=== PATIENT | male | born 2000 ===

== ENCOUNTER 2020-12-30 19:55 | Emergency (ER) | payer SELFPAY ==
--- NOTE | 2020-12-30 20:18 | NUR ---
Patient came up to registration window and stated "I don't want to be seen anymore." Patient was not seen by ERMD or triaged.
== END 2020-12-30 20:18 | disposition left against medical advice (07) ==
LOC: ER 20:00
DX: Z53.21 Procedure and treatment not carried out due to patient leaving prior to being seen by health care provider (principal)